=== PATIENT | male | born 1990 | race American Indian/Alaskan Native ===

== ENCOUNTER 2021-03-30 18:00 | Emergency (ER) | payer SELFPAY ==
[2021-03-30 18:07] VITALS: BP 143/80
--- NOTE | 2021-03-30 18:26 | Emergency Department Report ---
ED Male HPI - General Chief complaint: Urogenital-Male Stated complaint: STD CHECK Time Seen by Provider: 03/30/21 18:11 Source: patient Mode of arrival: Ambulatory Limitations: No Limitations - History of Present Illness Initial comments: 30-year-old male presents to the ER today with complaints of a scab on his penis. Patient states that about 2 weeks ago he and his girlfriend was having oral sex and he thinks she may have scraped his penis with her teeth or either her tongue ring. He states that a day or 2 later after having oral sex he notic ed that there was a small bump to the penis near the head of the penis. He states that over time it has now formed into a large scab and is now concerned that it could be related to an STD based on his research on the Internet. He denies any dysuria or penile discharge. He denies any testicular pain or swelling. He states that his girlfriend is a recent sexual partner 6 months. He states that she has not been expressing any symptoms. MD Complaint: other (penile lesion) - Related Data Allergies Allergy/AdvReac Type Severity Reaction Status Date / Time No Known Allergies Allergy Unverified 03/30/21 18:03 ED Review of Systems ROS: Stated complaint: STD CHECK Other details as noted in HPI Comment: All other systems reviewed and negative Skin: lesions, other (Penile lesion) ED Past Medical Hx - Past Medical History Previous Medical History?: No - Surgical History Past Surgical History?: No ED Physical Exam - General Limitations: No Limitations General appearance: alert, in no apparent distress - Head Head exam: Present: atraumatic, normocephalic, normal inspection - Neck Neck exam: Present: normal inspection, full ROM - Respiratory Respiratory exam: Absent: respiratory distress - Cardiovascular Cardiovascular Exam: Present: regular rate - GI/Abdominal GI/Abdominal exam: Present: soft. 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 Absent: testicular tenderness, urethral discharge, scrotal swelling, vertical testicular lie, circumcision External exam: Present: lesions (small (about size of dime) annular scabbed area noted near glans of penis dorsal but there is also milder scabbing noted adjacent to that area. there is no TTP, no cellulitis or swelling ). Absent: erythema, swelling, lacerations, ecchymosis, bleeding - Neurological Exam Neurological exam: Present: oriented X3, CN II-XII intact, normal gait - Psychiatric Psychiatric exam: Present: normal affect, normal mood - Skin Skin exam: Present: intact ED Course Vital Signs 03/30/21 18:06 Temperature 98.9 F Pulse Rate 98 H Respiratory 18 Rate Blood Pressure 143/80 O2 Sat by Pulse 91 Oximetry Critical care attestation.: If time is entered above; I have spent that time in minutes in the direct care of this critically ill patient, excluding procedure time. ED Disposition Clinical Impression: Penile lesion, Penile abrasion Disposition: HOME / SELF CARE / HOMELESS Is pt being admited?: No Does the pt Need Aspirin: No Condition: Stable Instructions: Safe Sex, Abrasion, [id number] Additional Instructions: The area on the penis could be related to an abrasion, but recommend that you follow-up with either urgent care or health department to get STD testing including syphilis testing. I recommend that both you and your partner get STD testing. In the meantime no sexual intercourse until both lesions are tested. Keep the area to the penis clean, do not use peroxide or alcohol use regular soap and water. Return to the ER if symptoms changes in any way. Referrals: JUNO ESCALERA MD [Staff Physician] - 3-5 Days Time of Disposition: 18:26
== END 2021-03-30 18:40 | disposition home or self-care (01) ==
LOC: ED 18:00
DX: S30.812A Abrasion of penis, initial encounter (principal); X58.XXXA Exposure to other specified factors, initial encounter; Y93.89 Activity, other specified; Y92.89 Other specified places as the place of occurrence of the external cause; Y99.8 Other external cause status
CPT/HCPCS: 99281